=== PATIENT | male | born 1950 | race Caucasian/White ===

== ENCOUNTER → 2017-08-25 | Day surgery (SDC) | payer OTHER ==
[~2017-08-25] MED LIST: AMBIEN 5 MG TABL5 M1 PO; CIALIS10 MG PO; JANUMET XR 1001 EACH PO; NADOLOL 20 MG T20 M1 PO
--- NOTE | ~2017-08-25 | EKG ---
[place] [address] [facility] [place] [address] ELECTROCARDIOGRAM REPORT Name: SARAH MAURICIO Room #: [facility].#: [id number] Admission: 08/25/17 Attend Phys: Charles Rivera MD Discharge: Date of : 48 Report #: [id number] THIS REPORT FOR: //name// 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 08/25/17 1643 [address] [facility] Christopher Villeda MD, FAC /EPI
== END | disposition home or self-care (01) ==
LOC: LITH 11:42
DX: N20.0 Calculus of kidney (principal); Z98.890 Other specified postprocedural states; N40.0 Benign prostatic hyperplasia without lower urinary tract symptoms; E11.40 Type 2 diabetes mellitus with diabetic neuropathy, unspecified